=== PATIENT | female | born 1960 | race Caucasian/White ===

== ENCOUNTER 2018-04-24 01:38 | Outpatient (RCR) | payer OTHER, SELFPAY ==
[2018-04-22 12:18] VITALS: BP 133/87; PULSE 68; RESP 18; TEMP 37.1; O2SAT 96
[2018-04-22] MEDS: IMMUNE GLOBULIN 10 GM/100 ML BTL IVPB (12:19)
[2018-04-22] MEDS: IMMUNE GLOBULIN 20 GM/200 ML BTL IVPB (12:20)
[2018-04-22] MEDS: Normal Saline Flush 10 ML SYR IVP (12:20)
[2018-04-22 12:27] VITALS: BP 132/84; PULSE 65; RESP 18; TEMP 37; O2SAT 95
[2018-04-22 12:45] VITALS: BP 142/85; PULSE 65; RESP 18; TEMP 36; O2SAT 96
[2018-04-22 13:02] VITALS: BP 134/84; PULSE 61; RESP 18; TEMP 36.5; O2SAT 95
[2018-04-22 13:44] VITALS: BP 149/96; PULSE 60; RESP 18; TEMP 36.8; O2SAT 99
[2018-04-23 12:10] VITALS: BP 164/90; PULSE 63; RESP 18; TEMP 36; O2SAT 97
[2018-04-23] MEDS: IMMUNE GLOBULIN 10 GM/100 ML BTL IVPB (12:13)
[2018-04-23 12:14] VITALS: BP 154/91; PULSE 65; RESP 18; TEMP 36.2; O2SAT 97
[2018-04-23] MEDS: Normal Saline Flush 10 ML SYR IVP (12:20)
[2018-04-23 12:25] LABS: CREATININE 0.45 mg/dL (0.55-1.02)
[2018-04-23] MEDS: IMMUNE GLOBULIN 20 GM/200 ML BTL IVPB (12:30)
[2018-04-23 12:35] VITALS: BP 138/78; PULSE 61; RESP 18; TEMP 37; O2SAT 97
[2018-04-23 13:00] VITALS: BP 139/82; PULSE 59; RESP 18; TEMP 36; O2SAT 95
[2018-04-24] MEDS: Normal Saline Flush 10 ML SYR IVP ×2 (11:51→11:56)
[2018-04-24] MEDS: IMMUNE GLOBULIN 10 GM/100 ML BTL IVPB (11:56)
[2018-04-24] MEDS: IMMUNE GLOBULIN 20 GM/200 ML BTL IVPB (11:56)
[2018-04-24 12:03] VITALS: BP 134/88; PULSE 75; RESP 18; TEMP 37.2; O2SAT 95
[2018-04-24 12:20] VITALS: BP 124/83; PULSE 65; RESP 18; TEMP 37.3; O2SAT 96
[2018-04-24 12:30] VITALS: BP 126/83; PULSE 66; RESP 18; TEMP 36.2; O2SAT 94
[2018-04-24 13:56] VITALS: BP 134/84; PULSE 62; RESP 18; TEMP 36.4; O2SAT 98
== END 2018-04-24 23:59 | disposition home or self-care (01) ==
LOC: INF 01:38
PROVIDERS: PCP Family Medicine; Visit Provider Psychiatry & Neurology Neurology
DX: G61.82 Multifocal motor neuropathy (principal)
CPT/HCPCS: 36415; 96365; 96366; 82565; J1561

== ENCOUNTER 2018-04-26 01:38 | Outpatient (RCR) | payer OTHER, SELFPAY ==
[2018-04-25 11:54] VITALS: BP 143/97; PULSE 64; RESP 18; TEMP 36.7; O2SAT 98
[2018-04-25] MEDS: IMMUNE GLOBULIN 20 GM/200 ML BTL IVPB (11:57)
[2018-04-25] MEDS: IMMUNE GLOBULIN 10 GM/100 ML BTL IVPB (11:57)
[2018-04-25] MEDS: Normal Saline Flush 10 ML SYR IVP (11:58)
[2018-04-25 12:15] VITALS: BP 135/88; PULSE 63; RESP 18; TEMP 37; O2SAT 93
[2018-04-25 12:32] VITALS: BP 126/83; PULSE 58; RESP 18; TEMP 36.5; O2SAT 96
[2018-04-25 13:02] VITALS: BP 135/81; PULSE 57; RESP 18; TEMP 36.6; O2SAT 95
[2018-04-25 13:31] VITALS: BP 140/84; PULSE 55; RESP 18; TEMP 36.7; O2SAT 97
[2018-04-26] MEDS: IMMUNE GLOBULIN 10 GM/100 ML BTL IVPB (12:21)
[2018-04-26] MEDS: Normal Saline Flush 10 ML SYR IVP ×2 (12:21→14:10)
[2018-04-26] MEDS: IMMUNE GLOBULIN 20 GM/200 ML BTL IVPB (12:21)
[2018-04-26 12:35] VITALS: BP 136/83; PULSE 61; RESP 18; TEMP 36.8; O2SAT 97
[2018-04-26 12:37] LABS: CREATININE 0.57 mg/dL (0.55-1.02)
[2018-04-26 12:50] VITALS: BP 138/82; PULSE 57; RESP 17; TEMP 37.2; O2SAT 98
[2018-04-26 13:17] VITALS: BP 151/83; PULSE 56; RESP 18; TEMP 36.8; O2SAT 96
[2018-04-26 13:46] VITALS: BP 152/84; PULSE 53; RESP 18; TEMP 37.1; O2SAT 96
== END 2018-05-24 23:59 | disposition home or self-care (01) ==
LOC: INF 01:38
PROVIDERS: PCP Family Medicine; Visit Provider Psychiatry & Neurology Neurology
DX: G61.82 Multifocal motor neuropathy (principal)
CPT/HCPCS: 36415; 96365; 96366; 82565; J1561

== ENCOUNTER 2018-06-07 00:56 | Outpatient (CLI) | payer OTHER, SELFPAY ==
--- NOTE | 2018-06-07 15:49 | DI.MRI_ITS ---
SYMPTOM/DIAGNOSIS: HYPERREFLEXIA, NEUROPATHY, ABNL REFLEX,C29.2 CERVICAL SPINE MRI: T 1, T 2, STIR, FLAIR and T 2 3D sagittal, gradient echo axial sequences were performed. The cord signal appears normal throughout. The intervertebral discs appear intact. The marrow signal is normal. There is no evidence of disc herniation or central canal stenosis. IMPRESSION: Negative MRI of the cervical spine.
== END 2018-06-07 01:16 ==
PROVIDERS: PCP Family Medicine; Visit Provider Psychiatry & Neurology Neurology
DX: R29.2 Abnormal reflex (principal); G62.9 Polyneuropathy, unspecified
CPT/HCPCS: 72141

== ENCOUNTER 2018-06-14 01:30 | Outpatient (RCR) | payer OTHER, SELFPAY ==
[2018-06-10 11:54] VITALS: BP 119/78; PULSE 70; RESP 18; TEMP 36; O2SAT 96
[2018-06-10] MEDS: IMMUNE GLOBULIN 10 GM/100 ML BTL IVPB (12:14)
[2018-06-10 12:16] VITALS: BP 103/71; PULSE 59; RESP 16; TEMP 36; O2SAT 97
[2018-06-10 12:32] VITALS: BP 117/74; PULSE 56; RESP 14; TEMP 36; O2SAT 95
[2018-06-10 12:45] VITALS: BP 120/73; PULSE 59; RESP 14; TEMP 36.2; O2SAT 98
[2018-06-10] MEDS: IMMUNE GLOBULIN 20 GM/200 ML BTL IVPB (13:08)
[2018-06-10 13:17] VITALS: BP 119/72; PULSE 62; RESP 14; TEMP 36.4; O2SAT 97
[2018-06-10 13:47] VITALS: BP 138/84; PULSE 60; RESP 18; TEMP 36; O2SAT 100
[2018-06-10] MEDS: Normal Saline Flush 10 ML SYR IVP (13:56)
[2018-06-11] MEDS: IMMUNE GLOBULIN 10 GM/100 ML BTL IVPB (12:08)
[2018-06-11] MEDS: Normal Saline Flush 10 ML SYR IVP (12:09)
[2018-06-11 12:10] VITALS: BP 133/77; PULSE 70; RESP 18; TEMP 36.5; O2SAT 95
[2018-06-11 12:26] VITALS: BP 119/74; PULSE 62; RESP 18; TEMP 36.5; O2SAT 97
[2018-06-11] MEDS: IMMUNE GLOBULIN 20 GM/200 ML BTL IVPB (13:01)
[2018-06-11 13:02] VITALS: BP 129/79; PULSE 64; RESP 14; TEMP 37; O2SAT 97
[2018-06-11 13:29] VITALS: BP 124/71; PULSE 58; RESP 14; TEMP 37; O2SAT 98
[2018-06-11 13:51] VITALS: BP 144/87; PULSE 67; RESP 14; TEMP 37.1; O2SAT 98
[2018-06-12] MEDS: IMMUNE GLOBULIN 10 GM/100 ML BTL IVPB (11:51)
[2018-06-12] MEDS: Normal Saline Flush 10 ML SYR IVP (11:52)
[2018-06-12 11:57] VITALS: BP 171/80; PULSE 64; RESP 17; TEMP 36; O2SAT 98
[2018-06-12 12:12] VITALS: BP 139/77; PULSE 72; RESP 18; TEMP 36.3; O2SAT 94
[2018-06-12 12:29] VITALS: BP 137/83; PULSE 69; RESP 18; TEMP 36.6; O2SAT 92
[2018-06-12] MEDS: IMMUNE GLOBULIN 20 GM/200 ML BTL IVPB (12:48)
[2018-06-12 13:00] VITALS: BP 129/80; PULSE 64; RESP 18; TEMP 36.6; O2SAT 96
[2018-06-13 11:52] VITALS: BP 126/79; PULSE 63; RESP 14; TEMP 36.5; O2SAT 95
[2018-06-13] MEDS: IMMUNE GLOBULIN 10 GM/100 ML BTL IVPB (12:04)
[2018-06-13] MEDS: Normal Saline Flush 10 ML SYR IVP (12:04)
[2018-06-13 12:15] VITALS: BP 116/75; PULSE 58; RESP 14; TEMP 36.3; O2SAT 95
[2018-06-13 12:37] VITALS: BP 120/72; PULSE 55; RESP 16; TEMP 36.4; O2SAT 95
[2018-06-13] MEDS: IMMUNE GLOBULIN 20 GM/200 ML BTL IVPB (12:58)
[2018-06-13 13:09] VITALS: BP 138/76; PULSE 50; RESP 14; TEMP 36; O2SAT 95
[2018-06-13 13:50] VITALS: BP 154/85; PULSE 51; RESP 14; TEMP 36.9; O2SAT 98
[2018-06-14 11:00] VITALS: BP 131/72; PULSE 72; RESP 16; TEMP 36.5; O2SAT 95
[2018-06-14] MEDS: Normal Saline Flush 10 ML SYR IVP ×2 (11:08→12:10)
[2018-06-14] MEDS: IMMUNE GLOBULIN 20 GM/200 ML BTL IVPB (11:08)
[2018-06-14 11:22] VITALS: BP 123/79; PULSE 71; RESP 14; TEMP 36.4; O2SAT 96
[2018-06-14 11:38] LABS: CREATININE 0.55 mg/dL (0.55-1.02)
[2018-06-14 11:46] VITALS: BP 116/69; PULSE 65; RESP 16; TEMP 36; O2SAT 96
[2018-06-14] MEDS: IMMUNE GLOBULIN 10 GM/100 ML BTL IVPB (12:05)
[2018-06-14 12:53] VITALS: BP 132/76; PULSE 60; RESP 14; TEMP 36; O2SAT 97
== END 2018-06-24 23:59 | disposition home or self-care (01) ==
LOC: INF 01:30
PROVIDERS: PCP Family Medicine; Visit Provider Psychiatry & Neurology Neurology
DX: G61.82 Multifocal motor neuropathy (principal)
CPT/HCPCS: 36415; 96365; 96366; 82565; J1459

== ENCOUNTER 2018-06-20 02:13 | Outpatient (CLI) | payer OTHER, SELFPAY ==
[2018-06-20 07:48] LABS: Absolute Basophil Count 0.01 k/cumm (0.0-0.2); Absolute Eosinophil Count 0.05 k/cumm (0.0-0.7); Absolute Lymphocyte Count 1.48 k/cumm (1.2-3.4); Absolute Monocyte Count 0.57 k/cumm (0.11-0.7); Absolute Neutrophil Count 3.73 k/cumm (1.2-6.7); Basophils % 0.2; Eosinophils % 0.9; HCT 40.6 % (36.0-46.0); HGB 13.4 g/dL (12.0-15.5); Lymphocytes % 25.3; Mean Corpuscular Hemoglobin 31.3 pg (27.0-33.0); Mean Corpuscular Volume 94.9 fL (80-95); Mean Platelet Volume 9.5 fL (8.0-11.0); Monocytes % 9.8; Neutrophils % 63.8; Platelet Count 168 x1000/uL (130-400); RBC 4.28 m/cumm (4.00-5.20); RBC Distribution Width 14.5 % (11.7-14.6); White Blood Cell Count 5.84 k/cumm (4.4-10.8)
[2018-06-20 09:16] LABS: ALT 29 U/L (12-78); AST 28 U/L (15-37); Alkaline Phosphatase 77 U/L (46-116); Anion Gap 7.8 mmol/L (3-11); BUN 14 mg/dL (7-18); Bilirubin, Total 0.3 mg/dL (0.2-1.0); CO2 27.2 mmol/L (21.0-32.0); CREATININE 0.51 mg/dL (0.55-1.02); Calcium 8.6 mg/dL (8.5-10.1); Chloride 105 mmol/L (98-107); Glucose 92 mg/dL (70-100); Potassium 3.7 mmol/L (3.5-5.1); Sodium 140 mmol/L (136-145); Total Protein 7.8 g/dL (6.4-8.2)
== END 2018-06-20 02:33 ==
PROVIDERS: PCP Family Medicine; Visit Provider Internal Medicine Rheumatology
DX: L93.0 Discoid lupus erythematosus (principal)
CPT/HCPCS: 36415; 80053; 85025

== ENCOUNTER 2018-06-21 00:53 | Outpatient (CLI) | payer OTHER, SELFPAY ==
--- NOTE | 2018-06-21 11:27 | DI.MRI_ITS ---
SYMPTOM/DIAGNOSIS: HYPERREFLEXIA, ABNORMAL REFLEX, R29.2 BRAIN MRI: Comparison is made with 06/03/15. T 2 sagittal, T 1, T 2, FLAIR, gradient echo and diffusion axial sequences were performed. Several small high signal foci are again noted in the white matter which do not appear significantly changed from the previous exam. The findings are nonspecific but could represent sequela of microvascular disease. No hemorrhage, mass or acute infarct is seen. The ventricles are unchanged in size. The vascular flow voids appear intact. The orbits and sinuses are unremarkable. IMPRESSION: Stable white matter changes which may be secondary to small vessel disease. No acute abnormality is seen. THORACIC SPINE MRI: There are no prior comparison exams. T 1, T 2, STIR and T 2 3D sagittal and T 2 axial sequences were performed. Degenerative disc changes are noted, greatest in the mid thoracic spine. There is no significant encroachment into the central canal. The cord signal and marrow signal appear normal. No disc herniation or neural foraminal narrowing is seen. IMPRESSION: Degenerative disc changes, greatest in the mid thoracic region.
--- NOTE | 2018-06-21 15:01 | DI.VRAD_ITS ---
EXAM: MR Head Without Contrast EXAM DATE/TIME: 06/21/2018 11:25 AM CLINICAL HISTORY: 58 years old, female; Signs and symptoms; Other: Hyperreflexia TECHNIQUE: MR of the head without contrast. COMPARISON: MRI - BRAIN W/WO CONTRAST 06/03/2015 7:10 PM FINDINGS: Brain: There is a similar appearance of the periventricular and subcortical T2/flair hyperintensities. Some of these white matter abnormalities display minimal increase in size, but no significant change in the number of lesions. Findings likely reflect chronic microangiopathy. Mild age-related involutional changes of the brain. No hemorrhage, mass or edema. No restricted diffusion. Ventricles: Normal. No ventriculomegaly. Bones/joints: Unremarkable. Soft tissues: Normal. Sinuses: Mild mucosal thickening in the left maxillary sinus. Remaining paranasal sinuses are clear. Mastoid air cells: Normal as visualized. No mastoid effusion. Orbits: Unremarkable. IMPRESSION: Chronic white matter abnormalities of the brain likely reflecting changes from chronic microangiopathy. A chronic demyelinating process is not excluded. Please correlate with exam and history. Dictated and Authenticated by: Misael Berry MD. Ordering:ELVA Ralph MD
--- NOTE | 2018-06-21 15:08 | DI.VRAD_ITS ---
EXAM: MR Thoracic Spine Without Contrast EXAM DATE/TIME: 06/21/2018 12:01 PM CLINICAL HISTORY: 58 years old, female; Signs and symptoms; Other: Hyperreflexia TECHNIQUE: Multiplanar magnetic resonance images of the thoracic spine without intravenous contrast. COMPARISON: No relevant prior studies available. FINDINGS: Vertebrae: Degenerative spondylitic changes are within normal limits for patient age. No acute fracture. Normal alignment. Spinal cord: Normal signal. No cord compression. Discs/Spinal canal/Neural foramina: There is a focal right paracentral disc protrusion and T6-T7 causing a mild indentation on the cord, but no cord signal abnormality changes and no significant canal stenosis. Disc degenerative changes in the thoracic spine are otherwise mild without additional significant disc herniations. No significant canal stenosis or neural foraminal stenosis otherwise. Soft tissues: Unremarkable. IMPRESSION: 1. Age-appropriate degenerative spondylitic changes. 2. No abnormalities of the spinal cord. Dictated and Authenticated by: Misael Berry MD. Ordering:ELVA Ralph MD
== END 2018-06-21 01:13 ==
PROVIDERS: PCP Family Medicine; Visit Provider Psychiatry & Neurology Neurology
DX: R29.2 Abnormal reflex (principal); R90.82 White matter disease, unspecified; M51.35 Other intervertebral disc degeneration, thoracolumbar region
CPT/HCPCS: 70551; 72146

== ENCOUNTER 2018-09-06 02:02 | Outpatient (RCR) | payer OTHER, SELFPAY ==
[2018-08-26 11:52] VITALS: BP 121/77; PULSE 64; TEMP 36.6; O2SAT 96
[2018-08-26 12:15] VITALS: BP 103/73; PULSE 61; RESP 18; TEMP 37; O2SAT 97
[2018-08-26] MEDS: IMMUNE GLOBULIN 10 GM/100 ML BTL IVPB (12:20)
[2018-08-26 12:32] VITALS: BP 107/70; PULSE 65; RESP 18; TEMP 37.2; O2SAT 98
[2018-08-26] MEDS: Normal Saline Flush 10 ML SYR IVP (12:55)
[2018-08-26] MEDS: IMMUNE GLOBULIN 20 GM/200 ML BTL IVPB (12:55)
[2018-08-26 13:00] VITALS: BP 134/81; PULSE 62; RESP 18; TEMP 37; O2SAT 97
[2018-08-26 13:41] VITALS: BP 135/73; PULSE 56; RESP 18; TEMP 36.5; O2SAT 98
[2018-08-29 12:09] VITALS: BP 134/83; PULSE 70; TEMP 36.5; O2SAT 95
[2018-08-29] MEDS: IMMUNE GLOBULIN 20 GM/200 ML BTL IVPB (12:18)
[2018-08-29] MEDS: IMMUNE GLOBULIN 10 GM/100 ML BTL IVPB (12:18)
[2018-08-29] MEDS: Normal Saline Flush 10 ML SYR IVP (12:19)
[2018-08-29 12:52] VITALS: BP 126/72; PULSE 61; TEMP 36.3; O2SAT 94
[2018-08-30 11:49] VITALS: BP 134/83; PULSE 66; RESP 18; TEMP 37; O2SAT 98
[2018-08-30 12:15] VITALS: BP 132/81; PULSE 60; RESP 18; TEMP 36.4; O2SAT 97
[2018-08-30] MEDS: IMMUNE GLOBULIN 10 GM/100 ML BTL IVPB (12:29)
[2018-08-30] MEDS: IMMUNE GLOBULIN 20 GM/200 ML BTL IVPB (12:30)
[2018-08-30] MEDS: Normal Saline Flush 10 ML SYR IVP (12:30)
[2018-08-30 12:45] VITALS: BP 125/73; PULSE 62; RESP 18; TEMP 36.5; O2SAT 95
[2018-08-30 12:49] LABS: CREATININE 0.57 mg/dL (0.55-1.02)
[2018-09-05] MEDS: IMMUNE GLOBULIN 10 GM/100 ML BTL IVPB (12:01)
[2018-09-05 12:04] VITALS: BP 127/79; PULSE 65; RESP 18; TEMP 36.5; O2SAT 94
[2018-09-05] MEDS: IMMUNE GLOBULIN 20 GM/200 ML BTL IVPB (12:06)
[2018-09-05] MEDS: Normal Saline Flush 10 ML SYR IVP (12:07)
[2018-09-05 12:29] VITALS: BP 131/79; PULSE 60; RESP 18; TEMP 36.6; O2SAT 96
[2018-09-05 13:00] VITALS: BP 121/71; PULSE 59; RESP 18; TEMP 36.6; O2SAT 96
[2018-09-05 13:55] VITALS: BP 136/74; PULSE 61; RESP 18; TEMP 36.7; O2SAT 95
[2018-09-06 11:48] VITALS: BP 139/87; PULSE 66; TEMP 37.1; O2SAT 95
[2018-09-06] MEDS: IMMUNE GLOBULIN 10 GM/100 ML BTL IVPB (11:53)
[2018-09-06] MEDS: Normal Saline Flush 10 ML SYR IVP (11:53)
[2018-09-06] MEDS: IMMUNE GLOBULIN 20 GM/200 ML BTL IVPB (11:53)
[2018-09-06 12:07] LABS: CREATININE 0.37 mg/dL (0.55-1.02)
[2018-09-06 12:18] VITALS: BP 146/82; PULSE 72; RESP 18; TEMP 36.5; O2SAT 94
[2018-09-06 12:32] VITALS: BP 153/87; PULSE 65; RESP 18; TEMP 36.6; O2SAT 95
[2018-09-06 13:00] VITALS: BP 126/71; PULSE 66; RESP 18; TEMP 36.6; O2SAT 94
== END 2018-09-22 23:59 | disposition home or self-care (01) ==
LOC: INF 02:02
PROVIDERS: PCP Family Medicine; Visit Provider Psychiatry & Neurology Neurology
DX: G61.82 Multifocal motor neuropathy (principal)
CPT/HCPCS: 36415; 96365; 96366; 82565; J1561

== ENCOUNTER 2018-09-30 08:22 | Outpatient (CLI) | payer OTHER, SELFPAY ==
[2018-09-30 09:02] LABS: Abs Immature Grans 0.01 k/cumm (0.0-0.09); Absolute Basophil Count 0.02 k/cumm (0.0-0.2); Absolute Eosinophil Count 0.07 k/cumm (0.0-0.7); Absolute Lymphocyte Count 1.71 k/cumm (1.2-3.4); Absolute Monocyte Count 0.52 k/cumm (0.11-0.7); Absolute Neutrophil Count 4.12 k/cumm (1.2-6.7); Basophils % 0.3; Eosinophils % 1.1; HCT 42.8 % (36.0-46.0); HGB 14.2 g/dL (12.0-15.5); Immature Grans % 0.2; Lymphocytes % 26.5; Mean Corp. HGB Concentration 33.2 g/dL (32.0-36.0); Mean Corpuscular Hemoglobin 31.6 pg (27.0-33.0); Mean Corpuscular Volume 95.1 fL (80-95); Mean Platelet Volume 9.8 fL (8.0-11.0); Monocytes % 8.1; Neutrophils % 63.8; Platelet Count 208 x1000/uL (130-400); RBC Distribution Width 13.7 % (11.7-14.6); White Blood Cell Count 6.45 k/cumm (4.4-10.8)
[2018-09-30 09:13] LABS: ALT 30 U/L (12-78); AST 29 U/L (15-37); Albumin 3.4 g/dL (3.4-5.0); Alkaline Phosphatase 90 U/L (46-116); Anion Gap 10.2 mmol/L (3-11); BUN 9 mg/dL (7-18); Bilirubin, Total 0.3 mg/dL (0.2-1.0); CO2 25.8 mmol/L (21.0-32.0); CREATININE 0.49 mg/dL (0.55-1.02); Calcium 8.9 mg/dL (8.5-10.1); Chloride 104 mmol/L (98-107); Glucose 91 mg/dL (70-100); LDH 154 U/L (81-234); Sodium 140 mmol/L (136-145); Total Protein 7.6 g/dL (6.4-8.2)
== END 2018-09-30 08:42 ==
PROVIDERS: PCP Family Medicine; Visit Provider Internal Medicine Hematology & Oncology
DX: C82.00 Follicular lymphoma grade I, unspecified site (principal); G61.81 Chronic inflammatory demyelinating polyneuritis
CPT/HCPCS: 36415; 80053; 83615; 85025

== ENCOUNTER 2018-10-04 09:41 | Outpatient (CLI) | payer OTHER, SELFPAY ==
[2018-10-07 11:00] LABS: IgA 235 mg/dL (85-499); IgG 1278 mg/dL (610-1616); IgM <12 mg/dL (35-242)
[2018-10-08 08:52] LABS: HBs Antibody, Qual Positive; HBs Antibody, Quant 406.7 mIU/mL; Hepatitis B Core Antibody Positive (NEGAT); Hepatitis B surface Ag Negative (NEGAT); Hepatitis C Ab w Rflx HCV PCR Negative (NEGAT)
== END 2018-10-04 10:01 ==
PROVIDERS: PCP Family Medicine; Referring Provider Internal Medicine Hematology & Oncology; Visit Provider Psychiatry & Neurology Neurology
DX: G61.82 Multifocal motor neuropathy (principal)
CPT/HCPCS: 36415; 82784; 86704; 86706; 86803; 87340

== ENCOUNTER 2018-10-10 06:02 | Outpatient (CLI) | payer OTHER, SELFPAY ==
[2018-10-12 15:48] LABS: HBV DNA Detect/Quant, PCR Undetected IU/mL (Undetected)
== END 2018-10-10 06:22 ==
PROVIDERS: PCP Family Medicine; Visit Provider Psychiatry & Neurology Neurology
DX: G61.82 Multifocal motor neuropathy (principal)
CPT/HCPCS: 36415; 87517

== ENCOUNTER 2018-11-15 08:20 | Outpatient (CLI) | payer OTHER, SELFPAY ==
--- NOTE | 2018-11-15 08:12 | DI.RAD_ITS ---
SYMPTOMS/DIAGNOSIS: RT FOOT PAIN, S/P TRAUMA RIGHT FOOT: Comparison is made with [id number]. There is a fracture through the proximal and mid portion of the first proximal phalanx with mild displacement but no significant angulation. The fracture may be subacute. A spur is again noted from the lateral aspect of the first metatarsal head. IMPRESSION: Fracture of the first proximal phalanx which may be subacute.
== END 2018-11-15 08:40 ==
PROVIDERS: PCP Family Medicine; Visit Provider Student in an Organized Health Care Education/Training Program
DX: M79.671 Pain in right foot (principal); S92.411A Displaced fracture of proximal phalanx of right great toe, initial encounter for closed fracture
CPT/HCPCS: 73630

== ENCOUNTER 2018-12-20 01:52 | Outpatient (RCR) | payer OTHER, SELFPAY ==
[2018-12-20] MEDS: diphenhydrAMINE 25 MG CAP 50 MG PO (09:35)
[2018-12-20] MEDS: Acetaminophen 325 MG TAB 650 MG PO (10:31)
[2018-12-20] MEDS: Dexamethasone 10 MG/ML VIAL IVP (10:37)
[2018-12-20 10:49] VITALS: BP 167/96; PULSE 58; RESP 18; TEMP 36; O2SAT 97
[2018-12-20 11:16] VITALS: BP 138/85; PULSE 58; RESP 18; TEMP 37; O2SAT 97
[2018-12-20 12:04] VITALS: BP 128/83; PULSE 64; RESP 18; TEMP 37; O2SAT 98
[2018-12-20 12:37] VITALS: BP 150/89; PULSE 58; RESP 18; TEMP 36.2; O2SAT 98
[2018-12-20 13:11] VITALS: BP 127/78; PULSE 71; RESP 18; TEMP 36.4; O2SAT 98
[2018-12-20 13:41] VITALS: BP 123/79; PULSE 73; RESP 18; TEMP 36.9; O2SAT 98
== END 2018-12-22 23:59 | disposition home or self-care (01) ==
LOC: INF 01:52
PROVIDERS: PCP Family Medicine; Visit Provider Internal Medicine
DX: G61.82 Multifocal motor neuropathy (principal)
CPT/HCPCS: 96365; 96366; J1100; J1200; J9310

== ENCOUNTER 2019-01-03 04:10 | Outpatient (RCR) | payer OTHER, SELFPAY ==
[2019-01-03] MEDS: diphenhydrAMINE 25 MG CAP 50 MG PO (10:49)
[2019-01-03] MEDS: Dexamethasone 10 MG/ML VIAL IVP (10:50)
[2019-01-03] MEDS: Acetaminophen 325 MG TAB 650 MG PO (10:50)
[2019-01-03 10:55] VITALS: BP 157/96; PULSE 64; RESP 18; TEMP 37.6; O2SAT 98
[2019-01-03 11:00] VITALS: BP 149/93; PULSE 67; RESP 18; TEMP 36.7; O2SAT 98
[2019-01-03] MEDS: Normal Saline Flush 10 ML SYR IVP (11:09)
[2019-01-03 11:30] VITALS: BP 139/87; PULSE 54; RESP 18; TEMP 37.1; O2SAT 98
[2019-01-03 11:59] VITALS: BP 143/84; PULSE 56; RESP 18; TEMP 36.7; O2SAT 97
[2019-01-03 12:30] VITALS: BP 131/82; PULSE 68; RESP 18; TEMP 36.6; O2SAT 100
[2019-01-03 12:52] VITALS: BP 140/80; PULSE 68; RESP 18; TEMP 36.5; O2SAT 97
== END 2019-01-22 23:59 | disposition home or self-care (01) ==
LOC: INF 04:10
PROVIDERS: PCP Family Medicine; Visit Provider Psychiatry & Neurology Neurology
DX: G61.82 Multifocal motor neuropathy (principal)
CPT/HCPCS: 96365; 96366; 96374; J1100; J9310

== ENCOUNTER 2019-03-20 07:36 | Outpatient (REF) | payer OTHER, SELFPAY ==
[2019-03-20 08:12] LABS: Epithelial Cells Few HPF (Negative); WBC >50 HPF (0-5)
[2019-03-20 08:13] LABS: Bacteria Moderate HPF (Negative); C & S Indicated? Yes; Casts Negative LPF (Negative); Crystals Negative HPF (Negative); Mucus Negative (Negative)
== END 2019-03-20 07:56 ==
LOC: LBN 07:36
PROVIDERS: PCP Family Medicine; Visit Provider Family Medicine
DX: R30.0 Dysuria (principal)
CPT/HCPCS: 87077; 81015; 87086; 87186

== ENCOUNTER 2019-08-24 10:44 | Emergency (ER) | payer OTHER, SELFPAY ==
[2019-08-24 10:49] VITALS: BP 170/90; PULSE 78; RESP 18; TEMP 36.7; O2SAT 97
--- NOTE | 2019-08-24 11:05 | ED.GENADUL_ITS ---
Discharge Plan Disposition Patient Disposition: HOME Condition: Improving Discharge Details Chief Complaint: Orthopedic Clinical Impression: Strain of left knee Primary Care Provider: Naga Ramirez ED Provider: Anoop Carreon Home Meds and New Rx's Prescriptions: Continued (DME) Ankle Foot Orthosis Qty: 1 RF: 0 levothyroxine 150 mcg tablet 150 mcg PO DAILY Qty: 90 RF: 3 quinapril 40 mg tablet 40 mg PO DAILY Qty: 90 RF: 3 hydroxychloroquine 200 MG tablet 200 mg PO DAILY RF: 0 Discharge Instructions Instructions: Swollen Knee Joint (ED) Additional Instructions: Please call the orthopedic office for follow-up. The office number is [phone]. Apply ice to reduce pain and swelling. May use Lupillo bandage for compression and stability while awake. Remove at bedtime. Return for worsening pain or any other acute concern. Medical Decision Making 59-year-old female presents from home stating that due to a slightly antalgic gait from recent right foot injury, she caught the edge of her 's knee scooter and twisted to her right side last night. She felt a twisting of her left knee and today has increased left knee primarily medial pain that is improved with Lupillo wrap and somewhat worse with movement. No laxity of the joint on exam, she is tender along the left knee medial joint line. Differential diagnosis includes strain, contusion, medial meniscus injury. Patient referred for x-ray: There is no evidence of fracture or malalignment. Discussed with her use of compression bandage and follow-up with Dr. Juarez in clinic as she has previously had a relationship with him. Consistent with knee strain, must rule out medial meniscus injury, patient appropriate for discharge to home at this time. HPI General Mode of arrival: ambulatory . Date/Time Provider Initiated Documentation: 08/24/19 10:48 . Limitations to Documentation: no limitations . Information obtained by: patient . History of Present Illness 59 year old F presents to the emergency department with the chief complaint of Left medial knee pain after twisting injury, described as moderate and similar to prior episodes, Quality is described as dull and constant, and is localized to the left and lower extremity. Patient reports no radiation. Patient started experiencing this day(s) and it has been constant. Rest improves symptom(s), Movement worsens symptoms . Patient notes no other symptoms.. Patient did receive the following treatments prior to arrival, other (Lupillo bandage) Related Data Home Medications Medication Instructions Recorded Confirmed hydroxychloroquine 200 mg PO DAILY 11/14/12 08/24/19 Ankle Foot Orthosis #1 ea 04/21/19 levothyroxine 150 mcg tablet 150 mcg PO DAILY #90 tab-cap 05/23/19 08/24/19 quinapril 40 mg tablet 40 mg PO DAILY #90 tab-cap 08/07/19 08/24/19 Previous Rx's Medication Instructions Recorded Ankle Foot Orthosis #1 ea 04/21/19 levothyroxine 150 mcg tablet 150 mcg PO DAILY #90 tab-cap 05/23/19 quinapril 40 mg tablet 40 mg PO DAILY #90 tab-cap 08/07/19 Allergies Allergy/AdvReac Type Severity Reaction Status Date / Time No Known Allergies Allergy Unverified 08/24/19 10:52 General Stated Complaint: Orthopedic CHARAN: 3 Review of Systems Narrative: Denies other injury. Recently hurt her right foot and has had an antalgic gait secondary to this. Has progressive muscular weakness that is followed by rheumatology and neurology. 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 Currently in remission s/p XRT and chemo (R-CHOPx4 and Rituximab [id number]). Follicular non-Hodgkin's lymphoma, large cell (Resolved) DX in 2010. Currently in remission s/p XRT and chemo. Hyperlipidemia (Chronic) Hypothyroidism (Resolved) Hypothyroidism (Chronic 12/24/09) Multifocal motor neuropathy (Chronic) Postmenopausal atrophic vaginitis (Chronic) multiple courses of Rx for BV/Candidiasis. Neg path screen. Rx with intravaginal Estrogen not tolerated. Premature menopause (Chronic) at age 30 Shingles (Resolved) 08/15/15 recurrent outbreak S2 region R buttock. Will initiate Valtrex. Sjogren's disease (Acute) Dr. 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 neg path screen x2. Not responsive to Rx for Candidia or BV. 11/21/13 Lotrisome Rx given. Vaginitis and vulvovaginitis (Chronic 11/21/13) Vitamin D deficiency (Chronic) Social History Smoking/Tobacco Use Status: Former Tobacco Use Alcohol Intake: never Drug use: Never Substance use type: does not use Household members: spouse Number of Children: 3 current occupation: [employer] Do you feel safe at home: Yes Do you feel safe in your relationship?: Yes Exam Narrative Exam Narrative: GEN: awake, alert, oriented 3. Pleasant, well groomed, interactive. HEAD: Normocephalic, atraumatic Chest: Nontender EXT: Patient has symmetrical lower extremity weakness is able to move and extend both legs against gravity. Her gait is narrow based but with poor heel strike. Left knee with tenderness along the medial joint line. No laxity appreciated. Neuro: Grossly normal neurologic exam, conversant, interactive. Psych: Speech fluent, thoughts congruent, affect normal Course Vital Signs Vital signs: Vital Signs Temperature 36.7 C 08/24/19 10:49 Pulse 78 08/24/19 10:49 Respiratory Rate 18 08/24/19 10:49 Blood Pressure 170/90 H 08/24/19 10:49 Pulse Oximetry 97 08/24/19 10:49 Temperature 36.7 C 08/24/19 10:49 Pulse 78 08/24/19 10:49 Respiratory Rate 18 08/24/19 10:49 Respiratory Effort Non-Labored 08/24/19 10:55 Blood Pressure 170/90 H 08/24/19 10:49 Pulse Oximetry 97 08/24/19 10:49 Oxygen Delivery Method Room Air 08/24/19 10:49 Oxygen Flow Rate 0 08/24/19 10:49 Pain Level 10 08/24/19 10:49
[2019-08-24] MEDS: Acetaminophen 500 MG TAB 1000 MG PO (11:08)
--- NOTE | 2019-08-24 11:26 | DI.RAD_ITS ---
EXAM: XR KNEE LT 3V AP,LAT,MURRAY INDICATION: Medial joint line pain after twisting injury. COMPARISON: No exams were available for comparison TECHNIQUE: 2D digital imaging was performed. FINDINGS: No fracture or joint effusion is seen. The joint spaces are well maintained. IMPRESSION: No acute abnormality. DATA REPOSITORY: RADIATION DOSE DELIVERED:
--- NOTE | 2019-08-24 12:36 | DI.VRAD_ITS ---
PROCEDURE INFORMATION: Exam: XR Left Knee Exam date and time: 08/24/2019 11:26 AM Age: 59 years old Clinical indication: Injury or trauma; Injury history: Twisting injury, medial joint line pain; Initial encounter; Sprain or strain; Patella or knee; Left TECHNIQUE: Imaging protocol: XR Left knee. Views: 3 views. COMPARISON: No relevant prior studies available. FINDINGS: Bones/joints: There is no evidence of acute fracture.There is no evidence of malalignment or dislocation. Soft tissues: Normal. IMPRESSION: There is no evidence of acute fracture.There is no evidence of malalignment or dislocation. Dictated and Authenticated by: Franco Pandey MD. Ordering:NANO Davalos MD
[2019-08-24 12:43] VITALS: BP 170/90; PULSE 78; RESP 18; TEMP 36.7; O2SAT 97
== END 2019-08-24 12:33 | disposition home or self-care (01) ==
PROVIDERS: Emergency Provider Emergency Medicine; PCP Family Medicine
DX: M25.561 Pain in right knee (principal); G61.82 Multifocal motor neuropathy; S83.8X1A Sprain of other specified parts of right knee, initial encounter; X50.9XXA Other and unspecified overexertion or strenuous movements or postures, initial encounter; I10 Essential (primary) hypertension
CPT/HCPCS: 73562; 99284

== ENCOUNTER 2019-11-13 04:18 | Outpatient (CLI) | payer OTHER, SELFPAY ==
[2019-11-13 11:31] LABS: Absolute Basophil Count 0.02 k/cumm (0.0-0.2); Absolute Eosinophil Count 0.13 k/cumm (0.0-0.7); Absolute Lymphocyte Count 1.79 k/cumm (1.2-3.4); Absolute Monocyte Count 0.68 k/cumm (0.11-0.7); Absolute Neutrophil Count 3.43 k/cumm (1.2-6.7); Basophils % 0.3; Eosinophils % 2.1; HCT 38.3 % (36.0-46.0); HGB 12.3 g/dL (12.0-15.5); Lymphocytes % 29.6; Mean Corp. HGB Concentration 32.1 g/dL (32.0-36.0); Mean Corpuscular Hemoglobin 30.2 pg (27.0-33.0); Mean Corpuscular Volume 94.1 fL (80-95); Mean Platelet Volume 9.5 fL (8.0-11.0); Monocytes % 11.2; Neutrophils % 56.8; Platelet Count 261 x1000/uL (130-400); RBC 4.07 m/cumm (4.00-5.20); RBC Distribution Width 14.1 % (11.7-14.6); White Blood Cell Count 6.05 k/cumm (4.4-10.8)
[2019-11-13 11:41] LABS: ALT 16 U/L (14-59); AST 14 U/L (15-37); Albumin 3.3 g/dL (3.4-5.0); Alkaline Phosphatase 100 U/L (46-116); Anion Gap 6.5 mmol/L (3-11); BUN 11 mg/dL (7-18); Bilirubin, Total 0.3 mg/dL (0.2-1.0); CO2 28.5 mmol/L (21.0-32.0); CREATININE 0.52 mg/dL (0.55-1.02); Calcium 8.5 mg/dL (8.5-10.1); Chloride 104 mmol/L (98-107); Glucose 104 mg/dL (74-106); LDH 165 U/L (81-234); Potassium 4.1 mmol/L (3.5-5.1); Sodium 139 mmol/L (136-145); Total Protein 6.5 g/dL (6.4-8.2)
== END 2019-11-13 04:38 ==
PROVIDERS: PCP Family Medicine; Visit Provider Internal Medicine Hematology & Oncology
DX: C82.00 Follicular lymphoma grade I, unspecified site (principal)
CPT/HCPCS: 36415; 80053; 83615; 85025

== ENCOUNTER 2020-10-26 21:04 | Outpatient (REF) | payer SELFPAY ==
[2020-10-26 20:22] LABS: RBC Negative HPF (0-2)
[2020-10-26 20:23] LABS: Bacteria Many HPF (Negative); WBC >50 HPF (0-5)
[2020-10-26 20:24] LABS: C & S Indicated? Yes
== END 2020-10-26 21:05 | disposition home or self-care (01) ==
LOC: LBN 21:04
PROVIDERS: PCP Family Medicine; Visit Provider Family Medicine
DX: R35.0 Frequency of micturition (principal)
CPT/HCPCS: 87077; 81015; 87086; 87186

== ENCOUNTER 2020-12-12 16:16 | Outpatient (REF) | payer SELFPAY | END 2020-12-12 16:17 | disposition home or self-care (01) | LOC: LBN 16:16 | PROVIDERS: PCP Family Medicine; Visit Provider Physician Assistant | DX: N39.0 Urinary tract infection, site not specified (principal) | CPT/HCPCS: 87077; 87086; 87186 ==